=== PATIENT | female | born 1930 | race Caucasian/White ===

== ENCOUNTER 2016-08-29 13:22 | Emergency (ER) | payer OTHER, MEDICARE ==
[~2016-08-29] VITALS: Ht 139.7 cm; Wt 52.2 kg
[~2016-08-29 13:22] MED LIST: ADULT LOW DOSE81 M1 PO; ADVAIR 250/501 DISK IH; ALBUTEROL SULF8.5 GM IH; ALENDRONATE SOD70 MG PO; ASPIRIN81 M1 PO; BENZONATATE100 MG PO; BUSPIRONE HCL5 MG PO; Bactrim,Septra DS 80 PO; CALCIUM + D3 E1 EACH PO; CALCIUM 500 +1 EAC1 PO; CALCIUM 500 +1 EACH PO; CALCIUM 600 +1 EAC2 PO; CALTRATE 6001 TABLE1 PO; CARDIZEM120 MG PO; CARDIZEM60 MG PO; CARDURA; CARDURA4 MG PO; CARTIA XT240 MG PO; CARTIA XT300 MG PO; CEPACOL SORE T1 EAC9 MM; CHILD ASPIRIN81 M1 PO; COUMADIN2.5 MG PO; COUMADIN5 MG PO; COUMADIN6 MG PO; Coumadin Protocol PO; DAILY VALUE1 EACH PO; DAILY VITAMIN1 EAC8 PO; DEMECLOCYCLINE150 MG PO; DEMECLOCYCLINE300 MG PO; DIGOXIN125 MCG PO; DILTIAZEM 24HR120 MG PO; DILTIAZEM 24HR180 MG PO; DILTIAZEM 24HR240 MG PO; DILTIAZEM HCL360 MG PO; DULCOLAX10 MG PR; DUONEB 2.5-0.5 M3 ML IH; FLAGYL500 MG PO; FLEET ENEMA-AD118 ML PR; FORTICAL3.7 ML NS; FOSAMAX70 MG PO; Flagyl PO; HALFPRIN81 M1 PO; IRON325 M1 PO; K-DUR20 MEQ PO; KEFLEX500 MG PO; LANOXIN125 MCG PO; LASIX20 MG PO; LEVAQUIN250 MG PO; LEVAQUIN500 MG PO; LISINOPRIL PO; LO-DOSE ASPIRIN81 M1 PO; LOPRESSOR100 M1 PO; LOPRESSOR25 MG PO; LOPRESSOR50 MG PO; LORATADINE10 M2 PO; LOSARTAN POTASS50 MG PO; LOW DOSE ASPIRI81 M1 PO; LOW DOSE ASPIRI81 M2 PO; Levaquin PO; Lopressor PO; METOPROLOL TAR100 MG PO; METOPROLOL TART25 MG PO; METOPROLOL TART50 MG PO; MUCINEX DM ER1 EACH PO; MULTIPLE VITAM1 EACH PO; MULTIVITAMIN1 EAC1 PO; MULTIVITAMIN1 EAC2 PO; Miralax, Glycolax PO; NEXIUM40 MG PO; OMEPRAZOLE20 MG PO; OMEPRAZOLE40 M1 PO; OS-CAL 500+D C1 EAC1 PO; OS-CAL 500+D T1 EAC1 PO; OSCAL 250 W/VI250 MG PO; OSCAL, OYSTER500 MG PO; PANTOPRAZOLE SO40 MG PO; PERCOCET 5/31 TABLET PO; PHILLIPS'400 MG/5 M PO; PHOSPHA250 MG PO; PRILOSEC20 MG PO; PRINIVIL5 MG PO; PROMETHAZINE HC25 M1 PO; ROBITUSSIN DM118 ML PO; ROCEPHIN1000 MG IM; SUCRALFATE1 GM/10 ML PO; TAB-A-VITE1 EACH PO; THIAMINE HCL100 MG PO; TYLENOL EXTRA500 MG PO; TYLENOL PM EX-1 EACH PO; TYLENOL REGULA325 MG PO; VALIUM5 MG PO; VITAMIN B-1100 MG PO; VITAMIN B-150 MG PO; WARFARIN SODIUM5 MG PO; XARELTO15 MG PO; ZIAC 10/6.251 TABLET PO; ZOFRAN ODT4 MG PO; ZOFRAN4 MG PO
[2016-08-29 14:45] LABS: HEMATOCRIT 41.4 % (36.0-46.0); MCH 31.2 PG (29.0-34.0); MEAN PLAT.VOLUME 8.9 uM^3 (9.5-12.4); PLATELET COUNT 236 K/uL (156-360); RBC DIS.WIDTH-CV 15.2 % (11.8-14.6); RBC DIS.WIDTH-SD 49.1 % (39-53); RED BLOOD COUNT 4.65 M/uL (3.80-5.20)
[2016-08-29 14:50] LABS: POTASSIUM ND MEQ/L (3.7-5.4)
[2016-08-29 14:52] LABS: EOSINOPHIL (%) 0 % (0-5); IMMATURE GRANULOCYTE (%) 0.2 % (0.0-0.7); IMMATURE GRANULOCYTE COUNT 0.3 K/uL; LYMPHOCYTE COUNT 1.6 K/uL (1.0-2.8); MONOCYTE (%) 11.4 % (3-12); MONOCYTE COUNT 1.5 K/uL (0-0.8); NEUTROPHIL (%) 76.4 % (45-76); NEUTROPHIL COUNT 9.9 K/uL (1.8-6.4)
[2016-08-29 14:55] LABS: CHLORIDE 105 mEq/L (99-109); SODIUM 138 mEq/L (136-147)
[2016-08-29 14:56] LABS: GLUCOSE 96 mg/dL (70-99)
[2016-08-29 14:58] LABS: ANION GAP 10 MEQ/L (2-14)
[2016-08-29 15:00] LABS: GFR ESTIMATE (CALCULATED) > 59 mL/min/
[2016-08-29 15:01] LABS: UREA NITROGEN (BUN) 24 mg/dL (9-23)
[2016-08-29 15:05] LABS: TROP-I INTERPRETATION NEGATIVE; TROPONIN-I < 0.01 ng/mL (0.0-0.30)
[2016-08-29 15:30] LABS: POTASSIUM 4.5 mEq/L (3.7-5.4)
[2016-08-29 15:45] LABS: ADD MIUA? NO; BILIRUBIN NEGATIVE; BLOOD NEGATIVE; COLOR YELLOW ((YELLOW)); GLUCOSE (STRIP) NEGATIVE; KETONES NEGATIVE; LEUKOCYTES NEGATIVE; NITRITE NEGATIVE; PROTEIN (STRIP) NEGATIVE; SPECIFIC GRAVITY 1.011 (1.000-1.030); UCUL ADDED? NO; UROBILINOGEN 0.2 MG/DL (0.2-1.0)
[2016-08-29 16:44] VITALS: BP 132/81
== END 2016-08-29 16:45 | disposition home or self-care (01) ==
LOC: EME 13:22
PROVIDERS: Emergency Medicine
DX: I48.91 Unspecified atrial fibrillation (principal); I10 Essential (primary) hypertension; I25.2 Old myocardial infarction; Z95.0 Presence of cardiac pacemaker; Z95.2 Presence of prosthetic heart valve; Z79.82 Long term (current) use of aspirin
CPT/HCPCS: 71010; 80048; 81003; 84484; 84999; 85025; 93005; 99281; 99285

== ENCOUNTER 2017-10-27 15:22 | Observation (INO) | payer OTHER, MEDICARE ==
[~2017-10-27] VITALS: Ht 139.7 cm; Wt 53.2 kg
[2017-10-27 15:45] LABS: HEMATOCRIT 43.2 % (36.0-46.0); HEMOGLOBIN 15.1 G/DL (11.9-15.5); MCH 31.5 PG (29.0-34.0); MCV 90.2 FL (83-99); PLATELET COUNT 207 K/uL (156-360); RBC DIS.WIDTH-CV 14.8 % (11.8-14.6); RBC DIS.WIDTH-SD 48.8 % (39-53); RED BLOOD COUNT 4.79 M/uL (3.80-5.20); WHITE BLOOD COUNT 8.2 K/uL (4.1-10.2)
[2017-10-27 16:10] LABS: TROP-I INTERPRETATION NEGATIVE; TROPONIN-I < 0.01 ng/mL (0.0-0.30)
[2017-10-27 16:26] LABS: CHLORIDE 104 mEq/L (99-109); POTASSIUM 4.4 mEq/L (3.7-5.4); SODIUM 139 mEq/L (136-147)
[2017-10-27 16:28] LABS: GLUCOSE 88 mg/dL (70-99)
[2017-10-27 16:32] LABS: CREATININE 0.7 mg/dL (0.6-1.3); GFR ESTIMATE (CALCULATED) > 59 mL/min/
[2017-10-27 16:33] LABS: UREA NITROGEN (BUN) 26 mg/dL (9-23)
[2017-10-27] MEDS ORDERED: FOSAMAX70 MG PO (18:49)
[2017-10-28 00:58] LABS: TROP-I INTERPRETATION NEGATIVE; TROPONIN-I < 0.01 ng/mL (0.0-0.30)
[2017-10-28 01:38] VITALS: BP 136/85
[2017-10-28 05:50] LABS: HEMATOCRIT 40.5 % (36.0-46.0); HEMOGLOBIN 13.5 G/DL (11.9-15.5); MCH 29.9 PG (29.0-34.0); MCHC 33.3 G/DL (30.0-36.0); MCV 89.6 FL (83-99); PLATELET COUNT 180 K/uL (156-360); RBC DIS.WIDTH-CV 14.7 % (11.8-14.6); RBC DIS.WIDTH-SD 48.2 % (39-53); RED BLOOD COUNT 4.52 M/uL (3.80-5.20)
[2017-10-28 06:07] LABS: TROP-I INTERPRETATION NEGATIVE; TROPONIN-I < 0.01 ng/mL (0.0-0.30)
[2017-10-28 06:10] LABS: CHLORIDE 101 MEQ/L (99-109); CREATININE 0.8 MG/DL (0.6-1.3); GFR ESTIMATE (CALCULATED) > 59 mL/min/; GLUCOSE 83 mg/dL (70-99); SODIUM 136 MEQ/L (136-147); UREA NITROGEN (BUN) 22 mg/dL (9-23)
[2017-10-28 07:25] VITALS: BP 117/73
[2017-10-28 11:41] VITALS: BP 115/78
[2017-10-28 15:35] VITALS: BP 135/83
[2017-10-28] MEDS ORDERED: LASIX20 MG PO (16:35)
== END 2017-10-28 19:14 | disposition home or self-care (01) ==
LOC: EME 15:22 → EDOF 21:18 → 4SOUTH 21:18 → ENRESERV 21:21 → 4SOUTH 10-28 01:16
PROVIDERS: Emergency Medicine; Hospitalist
DX: I11.0 Hypertensive heart disease with heart failure (principal); I50.9 Heart failure, unspecified; R07.89 Other chest pain; I48.91 Unspecified atrial fibrillation; Z87.19 Personal history of other diseases of the digestive system; I27.20 Pulmonary hypertension, unspecified; Z95.0 Presence of cardiac pacemaker; Z95.2 Presence of prosthetic heart valve; E87.1 Hypo-osmolality and hyponatremia; K74.69 Other cirrhosis of liver; I49.5 Sick sinus syndrome; E78.5 Hyperlipidemia, unspecified; J44.9 Chronic obstructive pulmonary disease, unspecified; M81.0 Age-related osteoporosis without current pathological fracture; Z79.82 Long term (current) use of aspirin; Z88.5 Allergy status to narcotic agent; Z88.1 Allergy status to other antibiotic agents; Z88.8 Allergy status to other drugs, medicaments and biological substances; Z88.6 Allergy status to analgesic agent
CPT/HCPCS: 71046; 71275; 80048; 80048 91; 83880; 84484; 85027; 93005; 99281; 99285; G0378; J1940; J7040